=== PATIENT | male | born 1995 | race Caucasian/White ===

== ENCOUNTER 2017-12-02 11:11 | Emergency (ER) | payer SELFPAY ==
[2017-12-02 11:22] VITALS: BP 139/83; PULSE 70; RESP 18; TEMP 97.7
--- NOTE | 2017-12-02 12:25 | ED ---
General Adult HPI - General Chief complaint: Upper Respiratory Infection Stated complaint: Cold Symptoms Time Seen by Provider: 12/02/17 12:05 Source: patient, RN notes reviewed Mode of arrival: ambulatory Limitations: no limitations - History of Present Illness Initial comments: 22-year-old male sent to the emergency department for a chief complaint of upper respiratory symptoms. Patient states he has had a cough for about a week. Patient states it is rarely productive. Patient denies asthma or smoking. Patient states he also has a slight sore throat that is alleviated with cough drops. Patient states he feels both his cough and sore throat are getting better. Patient states he also had some nausea and 1 episode of vomiting and diarrhea in the past few days. Patient states he is able to keep down food and liquids. Patient states he had a fever of 102 2 days ago and took Tylenol and it went down. He has not had a fever that he knows of since that time. Patient has not taken Tylenol today and is afebrile at the emergency department. Patient states he does once an obvious the flu. Patient does not want any other testing done. - Related Data Previous Rx's Medication Instructions Recorded Loratadine [Claritin] 10 mg PO DAILY #20 tab 12/02/17 Allergies Allergy/AdvReac Type Severity Reaction Status Date / Time No Known Allergies Allergy Verified 12/02/17 11:22 Review of Systems ROS Statement: Those systems with pertinent positive or pertinent negative responses have been documented in the HPI. ROS Other: All systems not noted in ROS Statement are negative. Past Medical History Past Medical History: No Reported History History of Any Multi-Drug Resistant Organisms: None Reported Additional Past Surgical History / Comment(s): dental surgery Past Psychological History: No Psychological Hx Reported Smoking Status: Never smoker Past Alcohol Use History: Rare Past Drug Use History: None Reported General Exam Limitations: no limitations General appearance: alert, in no apparent distress Eye exam: Present: normal appearance, PERRL, EOMI, other (Eyes are not erythematous. There is no purulent drainage. There is no watery drainage either.). Absent: scleral icterus, conjunctival injection, periorbital swelling ENT exam: Present: normal exam, mucous membranes moist, TM's normal bilaterally Neck exam: Present: normal inspection. Absent: tenderness, meningismus, lymphadenopathy Respiratory exam: Present: normal lung sounds bilaterally. Absent: respiratory distress, wheezes, rales, rhonchi, stridor, chest wall tenderness, accessory muscle use, decreased breath sounds, prolonged expiratory Cardiovascular Exam: Present: regular rate, normal rhythm, normal heart sounds. Absent: systolic murmur, diastolic murmur, rubs, gallop, clicks GI/Abdominal exam: Present: soft, normal bowel sounds. Absent: distended, tenderness, guarding, rebound, rigid Neurological exam: Present: alert, oriented X3 Psychiatric exam: Present: normal affect, normal mood Course Vital Signs 12/02/17 11:18 Temperature 97.7 F Pulse Rate 70 Respiratory 18 Rate Blood Pressure 139/83 O2 Sat by Pulse 98 Oximetry Medical Decision Making - Medical Decision Making 22-year-old male presents to the emergency department for a chief complaint of upper respirations symptoms. Patient has had a cough and sore throat for about a week. He also states he has some runny eyes. He denies pain or itching in the eyes. Denies redness of the eyes. Patient states he is starting to feel better. Patient states that 2 days ago he had a fever of 102 and took Tylenol and went down immediately. Patient states he has not had a fever since that time. Patient wants to be checked for the flu. Flu was negative. I offered to check for strep and a chest x-ray for pneumonia. He declined these. I did inform him that he would need antibiotics a fever there of these were positive he states he feels he is getting better and does not want any further testing. I advised him to follow up with primary care provider in one to 2 days to make sure he does not need antibiotics. Likely a viral upper respiratory infection. I did prescribe him Claritin for his runny eyes. He will return to the emergency department if he has any worsening symptoms or high fevers.. - Lab Data Lab Results 12/02/17 Range/Units 11:23 Influenza Type A RNA Not Detected (Not Detectd) Influenza Type B (PCR) Not Detected (Not Detectd) Disposition Clinical Impression: Upper respiratory infection Disposition: HOME SELF-CARE Condition: Good Instructions: Upper Respiratory Infection (ED) Additional Instructions: Follow-up with primary care provider in one to 2 days. You may need to be tested for strep or a chest x-ray if you do not begin to feel better. Please continue to take [id number]-[id number] cold medicine and Tylenol. Please return to the emergency department if you develop worsening symptoms or difficulty breathing. Prescriptions: Loratadine [Claritin] 10 mg PO DAILY #20 tab Referrals: None,Stated [Primary Care Provider] - 1-2 days Time of Disposition: 12:25
== END 2017-12-02 12:36 | disposition home or self-care (01) ==
LOC: EC 11:11
DX: J06.9 Acute upper respiratory infection, unspecified (principal); R11.2 Nausea with vomiting, unspecified; R19.7 Diarrhea, unspecified
CPT/HCPCS: 87502; 99283

== ENCOUNTER 2018-03-16 16:12 | Emergency (ER) | payer OTHER ==
[2018-03-16 17:22] VITALS: TEMP 103.1
[2018-03-16] MEDS ORDERED: ONDANSETRON 4 MG/2 ML VIAL IVP STA ×2 (17:26→20:37)
[2018-03-16] MEDS ORDERED: IBUPROFEN 800 MG TAB PO STA (17:26)
[2018-03-16] MEDS ORDERED: SODIUM CHLORIDE 0.9% 2,000 ML IV STA (17:26)
[2018-03-16] MEDS ORDERED: KETOROLAC 30 MG/ML 1 ML VIAL IVP STA (17:33)
[2018-03-16] MEDS ORDERED: ACETAMINOPHEN IV (For NPO) 1,000 MG in EMPTY BAG 1 BAG IVPB STA (17:33)
--- NOTE | 2018-03-16 17:36 | ED ---
Nausea/Vomiting/Diarrhea HPI - General Chief complaint: Nausea/Vomiting/Diarrhea Stated complaint: Vomiting Time Seen by Provider: 03/16/18 17:25 Source: patient, RN notes reviewed Mode of arrival: ambulatory Limitations: no limitations - Related Data Home Medications Medication Instructions Recorded Confirmed Acetaminophen Tab [Tylenol Tab] 650 mg PO Q6H PRN 03/16/18 03/16/18 Ibuprofen [Motrin Ib] 200 mg PO Q6HR PRN 03/16/18 03/16/18 Pepto-Bismol Tab 2 tab PO DAILY PRN 03/16/18 03/16/18 Previous Rx's Medication Instructions Recorded Ondansetron Odt [Zofran Odt] 4 mg PO Q8HR PRN #10 tab 03/16/18 Allergies Allergy/AdvReac Type Severity Reaction Status Date / Time No Known Allergies Allergy Verified 03/16/18 18:03 Review of Systems ROS Statement: Those systems with pertinent positive or pertinent negative responses have been documented in the HPI. ROS Other: All systems not noted in ROS Statement are negative. Past Medical History Past Medical History: No Reported History History of Any Multi-Drug Resistant Organisms: None Reported Additional Past Surgical History / Comment(s): dental surgery Past Psychological History: No Psychological Hx Reported Smoking Status: Never smoker Past Alcohol Use History: Rare Past Drug Use History: None Reported General Exam Limitations: no limitations General appearance: alert, in no apparent distress Head exam: Present: atraumatic, normocephalic, normal inspection Eye exam: Present: normal appearance, PERRL, EOMI. Absent: scleral icterus, conjunctival injection, periorbital swelling ENT exam: Present: normal exam, mucous membranes moist Neck exam: Present: normal inspection. Absent: tenderness, meningismus, lymphadenopathy Respiratory exam: Present: normal lung sounds bilaterally. Absent: respiratory distress, wheezes, rales, rhonchi, stridor Cardiovascular Exam: Present: normal rhythm, tachycardia, normal heart sounds. Absent: systolic murmur, diastolic murmur, rubs, gallop, clicks GI/Abdominal exam: Present: soft, tenderness, normal bowel sounds. Absent: distended, guarding, rebound, rigid Back exam: Absent: CVA tenderness (R), CVA tenderness (L) Skin exam: Present: warm, dry, intact, normal color. Absent: rash Course Vital Signs 03/16/18 17:20 Temperature 103.1 F H Pulse Rate 128 H Respiratory 18 Rate Blood Pressure 112/70 O2 Sat by Pulse 96 Oximetry Medical Decision Making - Medical Decision Making 22-year-old male presented for nausea vomiting fever abdominal discomfort. Patient lab work and CT which is unremarkable. He does feel improves still slight nausea but has not vomited emergency department there is no evidence of acute appendicitis. Patient will follow-up outpatient return for any worsening symptoms. Patient did have mild elevation in liver functions was told this will follow palpation. He has no current right quadrant abdominal tenderness. CT showed no evidence of cholecystitis - Lab Data Result diagrams: 03/16/18 18:27 03/16/18 18:27 Lab Results 03/16/18 03/16/18 03/16/18 Range/Units 18:27 18:27 18:27 WBC 11.8 H (3.8-10.6) k/uL RBC 5.82 (4.30-5.90) m/uL Hgb 16.1 (13.0-17.5) gm/dL Hct 46.7 (39.0-53.0) % MCV 80.3 (80.0-100.0) fL MCH 27.7 (25.0-35.0) pg MCHC 34.5 (31.0-37.0) g/dL RDW 12.7 (11.5-15.5) % Plt Count 248 (150-450) k/uL Neutrophils % 86 % Lymphocytes % 6 % Monocytes % 6 % Eosinophils % 1 % Basophils % 0 % Neutrophils # 10.2 H (1.3-7.7) k/uL Lymphocytes # 0.7 L (1.0-4.8) k/uL Monocytes # 0.7 (0-1.0) k/uL Eosinophils # 0.1 (0-0.7) k/uL Basophils # 0.0 (0-0.2) k/uL PT (9.0-12.0) sec INR (<1.2) APTT (22.0-30.0) sec Sodium 139 (137-145) mmol/L Potassium 4.3 (3.5-5.1) mmol/L Chloride 102 (98-107) mmol/L Carbon Dioxide 25 (22-30) mmol/L Anion Gap 12 mmol/L BUN 10 (9-20) mg/dL Creatinine 0.70 (0.66-1.25) mg/dL Est GFR (CKD-EPI)AfAm >90 (>60 ml/min/1.73 sqM) Est GFR (CKD-EPI)NonAf >90 (>60 ml/min/1.73 sqM) Glucose 97 (74-99) mg/dL Plasma Lactic Acid Jhon 1.7 (0.7-2.0) mmol/L Calcium 9.8 (8.4-10.2) mg/dL Total Bilirubin 1.7 H (0.2-1.3) mg/dL AST 75 H (17-59) U/L ALT 143 H (21-72) U/L Alkaline Phosphatase 61 (38-126) U/L Total Protein 8.3 H (6.3-8.2) g/dL Albumin 5.2 H (3.5-5.0) g/dL Amylase 63 (30-110) U/L Lipase 123 (23-300) U/L Urine Color Urine Appearance (Clear) Urine pH (5.0-8.0) Ur Specific Humble (1.001-1.035) Urine Protein (Negative) Urine Glucose (UA) (Negative) Urine Ketones (Negative) Urine Blood (Negative) Urine Nitrite (Negative) Urine Bilirubin (Negative) Urine Urobilinogen (<2.0) mg/dL Ur Leukocyte Esterase (Negative) 03/16/18 03/16/18 Range/Units 18:27 18:27 WBC (3.8-10.6) k/uL RBC (4.30-5.90) m/uL Hgb (13.0-17.5) gm/dL Hct (39.0-53.0) % MCV (80.0-100.0) fL MCH (25.0-35.0) pg MCHC (31.0-37.0) g/dL RDW (11.5-15.5) % Plt Count (150-450) k/uL Neutrophils % % Lymphocytes % % Monocytes % % Eosinophils % % Basophils % % Neutrophils # (1.3-7.7) k/uL Lymphocytes # (1.0-4.8) k/uL Monocytes # (0-1.0) k/uL Eosinophils # (0-0.7) k/uL Basophils # (0-0.2) k/uL PT 10.2 (9.0-12.0) sec INR 1.0 (<1.2) APTT 24.0 (22.0-30.0) sec Sodium (137-145) mmol/L Potassium (3.5-5.1) mmol/L Chloride (98-107) mmol/L Carbon Dioxide (22-30) mmol/L Anion Gap mmol/L BUN (9-20) mg/dL Creatinine (0.66-1.25) mg/dL Est GFR (CKD-EPI)AfAm (>60 ml/min/1.73 sqM) Est GFR (CKD-EPI)NonAf (>60 ml/min/1.73 sqM) Glucose (74-99) mg/dL Plasma Lactic Acid Jhon (0.7-2.0) mmol/L Calcium (8.4-10.2) mg/dL Total Bilirubin (0.2-1.3) mg/dL AST (17-59) U/L ALT (21-72) U/L Alkaline Phosphatase (38-126) U/L Total Protein (6.3-8.2) g/dL Albumin (3.5-5.0) g/dL Amylase (30-110) U/L Lipase (23-300) U/L Urine Color Yellow Urine Appearance Clear (Clear) Urine pH 6.0 (5.0-8.0) Ur Specific Humble 1.020 (1.001-1.035) Urine Protein Trace H (Negative) Urine Glucose (UA) Negative (Negative) Urine Ketones Negative (Negative) Urine Blood Negative (Negative) Urine Nitrite Negative (Negative) Urine Bilirubin Negative (Negative) Urine Urobilinogen 2.0 (<2.0) mg/dL Ur Leukocyte Esterase Negative (Negative) Disposition Clinical Impression: Gastroenteritis Disposition: HOME SELF-CARE Condition: Stable Instructions: Gastroenteritis (ED) Additional Instructions: Please return to the Emergency Department if symptoms worsen or any other concerns. Prescriptions: Ondansetron Odt [Zofran Odt] 4 mg PO Q8HR PRN #10 tab PRN Reason: Nausea Is patient prescribed a controlled substance at d/c from ED?: No Referrals: None,Stated [Primary Care Provider] - 1-2 days Asael Burns MD [STAFF PHYSICIAN] - 1-2 days Time of Disposition: 20:39
[2018-03-16 18:42] LABS: Basophils % (A) 0 %; Eosinophils # (A) 0.1 k/uL (0-0.7); Eosinophils % (A) 1 %; HCT 46.7 % (39.0-53.0); HGB 16.1 gm/dL (13.0-17.5); Lymphocytes # (A) 0.7 k/uL (1.0-4.8); Lymphocytes % (A) 6 %; MCH 27.7 pg (25.0-35.0); MCHC 34.5 g/dL (31.0-37.0); MCV 80.3 fL (80.0-100.0); Mean Platelet Volume 6.8; Monocytes # (A) 0.7 k/uL (0-1.0); Monocytes % (A) 6 %; Neutrophils # (A) 10.2 k/uL (1.3-7.7); Neutrophils % (A) 86 %; Platelet Count 248 k/uL (150-450); RBC 5.82 m/uL (4.30-5.90); RDW 12.7 % (11.5-15.5); WBC 11.8 k/uL (3.8-10.6)
[2018-03-16 18:43] LABS: Appearance,Urine Clear (Clear); Bilirubin,Urine Negative (Negative); Blood,Urine Negative (Negative); Color,Urine Yellow; Glucose,Urine (UA) Negative (Negative); Ketones,Urine Negative (Negative); Leukocyte Esterase,Urine Negative (Negative); Nitrite,Urine Negative (Negative); Protein,Urine Trace (Negative)
[2018-03-16 18:51] LABS: Prothrombin Time 10.2 sec (9.0-12.0)
[2018-03-16 19:03] LABS: ALT 143 U/L (21-72); AST 75 U/L (17-59); Albumin 5.2 g/dL (3.5-5.0); Alkaline Phosphatase 61 U/L (38-126); Amylase 63 U/L (30-110); Anion Gap 12 mmol/L; Blood Urea Nitrogen 10 mg/dL (9-20); Calcium 9.8 mg/dL (8.4-10.2); Carbon Dioxide 25 mmol/L (22-30); Chloride 102 mmol/L (98-107); Glucose 97 mg/dL (74-99); Lipase 123 U/L (23-300); Sodium 139 mmol/L (137-145); Total Bilirubin 1.7 mg/dL (0.2-1.3); Total Protein 8.3 g/dL (6.3-8.2)
[2018-03-16 19:09] LABS: Potassium 4.3 mmol/L (3.5-5.1)
--- NOTE | 2018-03-16 20:33 | CT ---
EXAMINATION TYPE: CT abdomen pelvis w con DATE OF EXAM: 03/16/2018 COMPARISON: None HISTORY: Fever, vomiting, headache. CT DLP: 1099.9 mGycm Automated exposure control for dose reduction was used. TECHNIQUE: Helical acquisition of images was performed from the lung bases through the pelvis. CONTRAST: Performed without Oral Contrast and with IV Contrast, patient injected with 100 mL of Isovue 300. FINDINGS: Lung bases are clear. There is no pleural effusion. There is fatty infiltration of the liver. Bile du cts are not dilated. Spleen appears normal. There is no pancreatic mass. Gallbladder appears normal. There is no adrenal mass. Kidneys show satisfactory contrast opacification. There is no hydronephrosi s. Ureters are not dilated. There is no retroperitoneal adenopathy. There is no ascites. Bladder dist ends smoothly. There is no pelvic mass. There is no evidence of free air. There is no ascites. Append ix is not seen. There is no sign of appendicitis. I see no bony destructive process. IMPRESSION: NEGATIVE CT SCAN OF THE ABDOMEN AND PELVIS FOR ACUTE ABNORMALITY. FATTY INFILTRATION OF THE LIVER.
[2018-03-16] MEDS ORDERED: ONDANSETRON 4 MG ODT STARTER PACK 2 TAB BTL PO STA (20:37)
[2018-03-16 20:56] VITALS: BP 124/65; PULSE 91; RESP 16
== END 2018-03-16 21:20 | disposition home or self-care (01) ==
LOC: EC 16:12
DX: K52.9 Noninfective gastroenteritis and colitis, unspecified (principal); R79.89 Other specified abnormal findings of blood chemistry; R00.0 Tachycardia, unspecified
CPT/HCPCS: 36415; 74177; 80053; 81003; 82150; 83605; 83690; 85025; 85610; 85730; 87040; 96361; 96365; 96375; 99284

== ENCOUNTER 2018-03-18 13:39 | Emergency (ER) | payer OTHER ==
[2018-03-18 13:46] VITALS: BP 130/83; PULSE 67; RESP 18; TEMP 98.1
--- NOTE | 2018-03-18 14:21 | ED ---
General Adult HPI - General Chief complaint: Allergic Reaction Stated complaint: Allergic Reaction Time Seen by Provider: 03/18/18 14:07 Source: patient Mode of arrival: ambulatory Limitations: no limitations - History of Present Illness Initial comments: Mejia Sosa is a 22-year-old male who was evaluated in our emergency department earlier in the week for uterine abdominal pain. Workup at that time included labs and a CT, patient did have a mildly elevated liver enzymes but a normal CT. Patient was treated with antiemetics and discharged home. Patient reports that since discharge he has noted a rash on his face, dry skin on his ears as well as rash on his hands. Patient reports that he has been treating this with Motrin and Benadryl but the rash persists so he came to the ER for reevaluation. Patient reports that nobody else in his family has a rash or illness. However his does state that their nephews were visiting and his nephew did have hand foot and mouth disease. Reports that he is otherwise feeling well. His abdominal pain and fever have resolved completely. He has been eating and drinking well. His been going to work. - Related Data Home Medications Medication Instructions Recorded Confirmed Acetaminophen Tab [Tylenol Tab] 650 mg PO Q6H PRN 03/16/18 03/16/18 Ibuprofen [Motrin Ib] 200 mg PO Q6HR PRN 03/16/18 03/16/18 Pepto-Bismol Tab 2 tab PO DAILY PRN 03/16/18 03/16/18 Previous Rx's Medication Instructions Recorded Ondansetron Odt [Zofran Odt] 4 mg PO Q8HR PRN #10 tab 03/16/18 Allergies Allergy/AdvReac Type Severity Reaction Status Date / Time No Known Allergies Allergy Verified 03/16/18 18:03 Review of Systems ROS Statement: Those systems with pertinent positive or pertinent negative responses have been documented in the HPI. ROS Other: All systems not noted in ROS Statement are negative. Past Medical History Past Medical History: No Reported History History of Any Multi-Drug Resistant Organisms: None Reported Additional Past Surgical History / Comment(s): dental surgery Past Psychological History: No Psychological Hx Reported Smoking Status: Never smoker Past Alcohol Use History: Rare Past Drug Use History: None Reported General Exam Limitations: no limitations General appearance: alert, in no apparent distress Head exam: Present: atraumatic, normocephalic Eye exam: Present: normal appearance, PERRL, EOMI. Absent: scleral icterus ENT exam: Present: TM's normal bilaterally, other (Lesions on posterior oropharynx, erythematous rash on bilateral ears with dry flaky skin) Neck exam: Present: full ROM. Absent: tenderness, lymphadenopathy Respiratory exam: Present: normal lung sounds bilaterally. Absent: respiratory distress, wheezes Cardiovascular Exam: Present: regular rate, normal rhythm GI/Abdominal exam: Present: soft. Absent: distended Neurological exam: Present: alert, oriented X3 Psychiatric exam: Present: normal affect, normal mood Skin exam: Present: warm, dry Course Vital Signs 03/18/18 03/18/18 13:43 14:37 Temperature 98.1 F 98.1 F Pulse Rate 67 67 Respiratory 18 18 Rate Blood Pressure 130/83 130/83 O2 Sat by Pulse 97 97 Oximetry Medical Decision Making - Medical Decision Making Patient was seen and evaluated, history was obtained from review of medical record as well as the patient and his at bedside. Physical exam is consistent with kplg-glqr-lkg-mouth disease. The patient had fever body aches and abdominal pain prior, he is subsequently developed a rash on his hands as well as his throat. In addition he does have some rash to the face, uncertain if this is viral exanthem or ALLERGIC reaction. He has no other signs of an ALLERGIC reaction and the rash has not improved with Benadryl. I do not feel steroids are indicated at this time. Intensive discussion with the patient as well as his at bedside about the contagiousness of ewto-iypv-hym-mouth, they do admit that there nephew had this recently and was visiting them. They do have a 2-year-old daughter at bedside who has no symptoms. I advised that the treatment is supportive care, prevention of spread is based on not sharing drinks, frequent handwashing and basic hygiene including covering her mouth when he sneezes or coughs. Questions pertaining care were answered best my ability patient was discharged home in stable condition Disposition Clinical Impression: Hand, foot and mouth disease Disposition: HOME SELF-CARE Condition: Good Instructions: Hand, Foot, and Mouth Disease (ED), Viral Exanthem (ED) Is patient prescribed a controlled substance at d/c from ED?: No Referrals: Emile Tom MD [REFERRING] - 1-2 days Time of Disposition: 14:21
== END 2018-03-18 14:37 | disposition home or self-care (01) ==
LOC: EC 13:39
DX: B08.4 Enteroviral vesicular stomatitis with exanthem (principal)
CPT/HCPCS: 99283

== ENCOUNTER 2019-08-09 17:34 | Emergency (ER) | payer OTHER ==
[2019-08-09] MEDS ORDERED: SODIUM CHLORIDE 0.9% 500 ML 500 ML IV STA (18:06)
[2019-08-09] MEDS ORDERED: ACETAMINOPHEN TAB 500 MG TAB PO STA (18:06)
[2019-08-09] MEDS ORDERED: SODIUM CHLORIDE 0.9% 1,000 ML IV STA ×2 (18:06)
[2019-08-09] MEDS ORDERED: KETOROLAC 30 MG/ML 1 ML VIAL IVP STA (18:07)
--- NOTE | 2019-08-09 18:10 | ED ---
Fever HPI - General Chief Complaint: Fever Stated Complaint: Fever Time Seen by Provider: 08/09/19 17:54 Source: patient, RN notes reviewed, old records reviewed Mode of arrival: ambulatory Limitations: no limitations - History of Present Illness Initial Comments: this is a 23-year-old male with no significant medical history sick contacts include multiple patient's and family members with flu and fever. Patient is a up-to-date no significant travel history. Patient states he feels crawly 4 days body aches pains mild nausea no vomiting no diarrhea. patient is without any significant complaints other than weakness feels like his appetite is dim inished with nausea.patient does feel dehydrated MD Complaint: fever, weakness -: days(s) (4) Temperature Source: subjective Context: sick contacts Associated Symptoms: chills, rigors, myalgias, abdominal pain, nausea - Related Data Home Medications Medication Instructions Recorded Confirmed Acetaminophen Tab [Tylenol Tab] 650 mg PO Q6H PRN 03/16/18 03/16/18 Ibuprofen [Motrin Ib] 200 mg PO Q6HR PRN 03/16/18 03/16/18 Pepto-Bismol Tab 2 tab PO DAILY PRN 03/16/18 03/16/18 Previous Rx's Medication Instructions Recorded Ondansetron Odt [Zofran Odt] 4 mg PO Q8HR PRN #10 tab 03/16/18 Allergies Allergy/AdvReac Type Severity Reaction Status Date / Time No Known Allergies Allergy Verified 08/09/19 17:45 Review of Systems ROS Statement: Those systems with pertinent positive or pertinent negative responses have been documented in the HPI. ROS Other: All systems not noted in ROS Statement are negative. Past Medical History Past Medical History: No Reported History History of Any Multi-Drug Resistant Organisms: None Reported Additional Past Surgical History / Comment(s): dental surgery Past Psychological History: No Psychological Hx Reported Smoking Status: Never smoker Past Alcohol Use History: Rare Past Drug Use History: None Reported General Exam Limitations: no limitations General appearance: alert, in no apparent distress Head exam: Present: atraumatic, normocephalic, normal inspection Eye exam: Present: normal appearance, PERRL, EOMI. Absent: scleral icterus, conjunctival injection, periorbital swelling ENT exam: Present: normal exam, mucous membranes moist Neck exam: Present: normal inspection. Absent: tenderness, meningismus, lymphadenopathy Respiratory exam: Present: normal lung sounds bilaterally. Absent: respiratory distress, wheezes, rales, rhonchi, stridor Cardiovascular Exam: Present: regular rate, normal rhythm, normal heart sounds. Absent: systolic murmur, diastolic murmur, rubs, gallop, clicks GI/Abdominal exam: Present: soft, normal bowel sounds. Absent: distended, tenderness, guarding, rebound, rigid Extremities exam: Present: normal inspection, full ROM, normal capillary refill. Absent: tenderness, pedal edema, joint swelling, calf tenderness Back exam: Present: normal inspection Neurological exam: Present: alert, oriented X3, CN II-XII intact Psychiatric exam: Present: normal affect, normal mood Skin exam: Present: warm, dry, intact, normal color. Absent: rash Course Vital Signs 08/09/19 17:43 Temperature 100.2 F H Pulse Rate 99 Respiratory 16 Rate Blood Pressure 150/115 O2 Sat by Pulse 97 Oximetry - Reevaluation(s) Reevaluation #1: 08/09/19 19:45 medical record is reviewed Reevaluation #2: 08/09/19 19:45 patient is feeling better Medical Decision Making - Medical Decision Making 23 male to the ED co fever and weakness, not feeling well, patient feels much improved currently nausea is resolved able to tolerate oral intake here in the ER encourages to improve oral intake fluids and fever control - Lab Data Result diagrams: 08/09/19 18:15 08/09/19 18:15 Lab Results 08/09/19 08/09/19 08/09/19 Range/Units 18:15 18:15 18:15 WBC 11.5 H (3.8-10.6) k/uL RBC 5.41 (4.30-5.90) m/uL Hgb 15.7 (13.0-17.5) gm/dL Hct 44.3 (39.0-53.0) % MCV 81.8 (80.0-100.0) fL MCH 28.9 (25.0-35.0) pg MCHC 35.4 (31.0-37.0) g/dL RDW 11.8 (11.5-15.5) % Plt Count 311 (150-450) k/uL Neutrophils % 67 % Lymphocytes % 21 % Monocytes % 7 % Eosinophils % 1 % Basophils % 0 % Neutrophils # 7.6 (1.3-7.7) k/uL Lymphocytes # 2.5 (1.0-4.8) k/uL Monocytes # 0.8 (0-1.0) k/uL Eosinophils # 0.1 (0-0.7) k/uL Basophils # 0.0 (0-0.2) k/uL Sodium 141 (137-145) mmol/L Potassium 3.5 (3.5-5.1) mmol/L Chloride 94 L (98-107) mmol/L Carbon Dioxide 35 H (22-30) mmol/L Anion Gap 12 mmol/L BUN 11 (9-20) mg/dL Creatinine 0.73 (0.66-1.25) mg/dL Est GFR (CKD-EPI)AfAm >90 (>60 ml/min/1.73 sqM) Est GFR (CKD-EPI)NonAf >90 (>60 ml/min/1.73 sqM) Glucose 105 H (74-99) mg/dL Calcium 9.9 (8.4-10.2) mg/dL Total Bilirubin 1.3 (0.2-1.3) mg/dL AST 33 (17-59) U/L ALT 53 H (4-49) U/L Alkaline Phosphatase 61 (38-126) U/L Total Protein 8.7 H (6.3-8.2) g/dL Albumin 5.2 H (3.5-5.0) g/dL Influenza Type A RNA Not Detected (Not Detectd) Influenza Type B (PCR) Not Detected (Not Detectd) - Radiology Data Radiology results: report reviewed (CXR is negative for acute disease), image reviewed Disposition Clinical Impression: Fever, Viral infection Disposition: HOME SELF-CARE Condition: Good Instructions (If sedation given, give patient instructions): Fever in Adults (ED), Viral Syndrome (ED) Is patient prescribed a controlled substance at d/c from ED?: No Referrals: None,Stated [Primary Care Provider] - 1-2 days
[2019-08-09] MEDS ORDERED: ONDANSETRON 4 MG/2 ML VIAL IVP STA (18:41)
[2019-08-09 18:54] LABS: ALT 53 U/L (4-49); AST 33 U/L (17-59); African American GFR (CKD) >90 (>60 ml/min/1.73 sqM); Albumin 5.2 g/dL (3.5-5.0); Alkaline Phosphatase 61 U/L (38-126); Anion Gap 12 mmol/L; Basophils % (A) 0 %; Blood Urea Nitrogen 11 mg/dL (9-20); Calcium 9.9 mg/dL (8.4-10.2); Carbon Dioxide 35 mmol/L (22-30); Chloride 94 mmol/L (98-107); Eosinophils # (A) 0.1 k/uL (0-0.7); Eosinophils % (A) 1 %; Glucose 105 mg/dL (74-99); HCT 44.3 % (39.0-53.0); HGB 15.7 gm/dL (13.0-17.5); Lymphocytes # (A) 2.5 k/uL (1.0-4.8); Lymphocytes % (A) 21 %; MCH 28.9 pg (25.0-35.0); MCHC 35.4 g/dL (31.0-37.0); MCV 81.8 fL (80.0-100.0); Mean Platelet Volume 7.3; Monocytes # (A) 0.8 k/uL (0-1.0); Monocytes % (A) 7 %; Neutrophils # (A) 7.6 k/uL (1.3-7.7); Neutrophils % (A) 67 %; Non-African American GFR(CKD) >90 (>60 ml/min/1.73 sqM); Platelet Count 311 k/uL (150-450); Potassium 3.5 mmol/L (3.5-5.1); RBC 5.41 m/uL (4.30-5.90); RDW 11.8 % (11.5-15.5); Sodium 141 mmol/L (137-145); Total Bilirubin 1.3 mg/dL (0.2-1.3); Total Protein 8.7 g/dL (6.3-8.2); WBC 11.5 k/uL (3.8-10.6)
--- NOTE | 2019-08-09 19:10 | XR ---
EXAMINATION TYPE: XR chest 2V DATE OF EXAM: 08/09/2019 COMPARISON: NONE HISTORY: Fever TECHNIQUE: 2 views FINDINGS: Heart and mediastinum are normal. Lungs are clear. Diaphragm is normal. Bony thorax appears normal. IMPRESSION: Normal chest
[2019-08-09] MEDS ORDERED: DEXAMETHASONE SOD PHOSPHATE 10 MG/ML 1 ML VIAL IV STA (19:48)
[2019-08-09 20:25] VITALS: BP 122/70; PULSE 75; RESP 18; TEMP 98.5
== END 2019-08-09 20:25 | disposition home or self-care (01) ==
LOC: EC 17:34
DX: B34.9 Viral infection, unspecified (principal)
CPT/HCPCS: 36415; 80053; 85025; 87040; 87502; 71046; 99284; 96374; 96375 ×2; 96361 ×2; J1100; J2405; J1885

== ENCOUNTER → 2022-02-10 | Outpatient (CLI) | payer OTHER ==
--- NOTE | 2022-02-10 13:23 | US ---
EXAMINATION TYPE: US venous doppler duplex LE LT DATE OF EXAM: 02/10/2022 11:00 AM COMPARISON: NONE CLINICAL HISTORY: 26-year-old male I80.9 PHLEBITIS AND THROMBOPHLEBITIS. SIDE PERFORMED: Left TECHNIQUE: The lower extremity deep venous system is examined utilizing real time linear array sonog antonino with graded compression, doppler sonography and color-flow sonography. FINDINGS: VESSELS IMAGED: Common Femoral Vein Deep Femoral Vein Greater Saphenous Vein * Femoral Vein Popliteal Vein Small Saphenous Vein * Proximal Calf Veins (* superficial vessels) Left Leg: Negative for DVT GSV and PTV also scanned per order. IMPRESSION: No evidence for DVT within the left lower extremity.
== END | disposition home or self-care (01) ==
LOC: RADUSWWP 10:47
PROVIDERS: ATTEND Orthopaedic Surgery
DX: S83.195A Other dislocation of left knee, initial encounter (principal); I80.9 Phlebitis and thrombophlebitis of unspecified site; X58.XXXA Exposure to other specified factors, initial encounter